=== PATIENT | female | born 1965 | race Caucasian/White ===

== ENCOUNTER 2020-04-10 07:36 | Outpatient (CLI) | payer OTHER, SELFPAY ==
--- NOTE | ~2020-04-10 | US_ITS ---
EXAMINATION: US thyroid DATE: 04/10/2020 08:59 INDICATION: Nontoxic single thyroid nodule. TECHNIQUE: Multiple ultrasound images of the thyroid were obtained. COMPARISON: None. FINDINGS: The right thyroid lobe measures 4.4 x 1.2 x 1.2 cm. The left thyroid lobe measures 3.1 x 1.8 x 1.2 c m. 3 mm wider than tall solid hypoechoic nodule without echogenic foci in the mid right thyroid. 2.1 cm wider than tall predominantly solid hypoechoic nodule with increased vascular flow on color Doppl er but without echogenic foci in the mid left thyroid. Both nodules are (TI-RADS 4, moderately suspic ious , FNA if >=1.5 cm, annual followup is >1 cm). There is normal echotexture, echogenicity and vas cular flow throughout the surrounding thyroid gland. IMPRESSION: 1. Bilateral thyroid nodules. Recommend ultrasound guided biopsy of the 2.1 cm TI RADS 4 left thyroid nodule. Reviewed, dictated and finalized at location A.
== END 2020-04-10 07:37 | disposition home or self-care (01) ==
LOC: ANHIMG 07:41
PROVIDERS: PCP Family Medicine; Visit Provider Otolaryngology
DX: E04.2 Nontoxic multinodular goiter (principal)
CPT/HCPCS: 76536

== ENCOUNTER 2020-11-01 08:17 | Outpatient (CLI) | payer OTHER, SELFPAY ==
--- NOTE | ~2020-11-01 | MM_ITS ---
EXAMINATION: MM screening [facility] BI w eloise HISTORY: Screening TECHNIQUE: Craniocaudal and mediolateral oblique 3-D tomosynthesis images were obtained and synthetic 2-D images were generated. CAD analysis was submitted and interpreted. COMPARISON: No prior mammogram is available for comparison at this institution. BREAST PARENCHYMAL COMPOSITION: The breasts are heterogeneously dense, which may obscure small masses . FINDINGS: There is a possible mass in the subareolar location of the left breast on CC view. There is no mammographic evidence for malignancy in the right breast. IMPRESSION: 1. Possible left breast mass. 2. Additional mammographic views and possible breast ultrasound are recommended. BI-RADS Category 0: Incomplete: Needs additional imaging evaluation. Reviewed, dictated and finalized at location A. 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 Possible left breast mass. 2. Additional mammographic views and possible breast ultrasound are recommended . BI-RADS Category 0: Incomplete: Needs additional imaging evaluation.
== END 2020-11-01 08:18 | disposition home or self-care (01) ==
LOC: ANHIMG 08:22
PROVIDERS: PCP Family Medicine; Visit Provider Obstetrics & Gynecology
DX: Z12.31 Encounter for screening mammogram for malignant neoplasm of breast (principal); R92.8 Other abnormal and inconclusive findings on diagnostic imaging of breast
CPT/HCPCS: 77063; 77067

== ENCOUNTER 2020-12-04 11:32 | Outpatient (CLI) | payer OTHER, SELFPAY ==
--- NOTE | ~2020-12-04 | MMUS_ITS ---
EXAMINATION: MM diagnostic mammo unilat LT, US breast LT complete HISTORY: Focal subareolar asymmetry reported on 11/01/2020 screening mammogram TECHNIQUE: Additional 3-D tomosynthesis images of the left breast were performed and synthetic 2-D im ages were generated. CAD analysis was submitted and interpreted. High resolution complete left breast ultrasound was performed. COMPARISON: 11/01/2020 bilateral digital screening mammogram FINDINGS: MAMMOGRAPHIC FINDINGS: No suspicious mass or architectural distortion, malignant calcification, skin thickening or retractio n is detected. ULTRASOUND: No suspicious mass or shadowing of the left breast is evident. IMPRESSION: 1. No mammographic evidence of malignancy 2. Routine annual mammographic screening is recommended. BI-RADS Category 1: Negative Reviewed, dictated and finalized at location A. IMPRESSION: 1. No mammographic evidence of malignancy 2. Routine annual mammographic screening is recommended. BI-RADS Category 1: Negative
== END 2020-12-04 11:33 | disposition home or self-care (01) ==
PROVIDERS: PCP Family Medicine; Visit Provider Obstetrics & Gynecology
DX: R92.8 Other abnormal and inconclusive findings on diagnostic imaging of breast (principal); N63.20 Unspecified lump in the left breast, unspecified quadrant
CPT/HCPCS: 76641; 77065

== ENCOUNTER 2021-03-21 13:21 | Outpatient (CLI) | payer BC, SELFPAY ==
--- NOTE | ~2021-03-21 | US_ITS ---
EXAMINATION: US thyroid EXAM DATE: 03/21/2021 13:57 INDICATION: Thyroid nodule. TECHNIQUE: Multiple grayscale and Doppler images of the thyroid were obtained (by a technologist who performed the scan) and subsequently reviewed. Individual nodules and recommendations may be reporte d in accordance with TI-RADS system as designated by the 2017 ACR White Paper TI-RADS committee. Comp sharda is made to prior examination from 04/16/2020. FINDINGS: The right thyroid lobe measures 4.0 x 1.6 x 1.0 cm, the left measuring 4.2 x 1.9 x 1.3 cm. There are several thyroid nodules. Largest nodule is in the left thyroid lobe, hypervascular and measuring 2.1 x 0.9 x 1.4 cm, solid (2 points), hypoechoic (2 points), wider than tall, smooth well defined margin, without echogenic foci, category TR4 for this nodule. Last year this nodule measured 2.1 x 1.4 x 1. 8 cm, has demonstrated mild interval decrease in size. Category TR 4 nodules greater than 1.5 cm are recommended for ultrasound-guided biopsy. IMPRESSION: Left thyroid lobe nodule with mild interval decrease in size. This is large enough for ul trasound-guided biopsy but given decrease in size, one year follow-up would be reasonable as well. Reviewed, dictated and finalized at location A. IMPRESSION: Left thyroid lobe nodule with mild interval decrease in size. This is large enough for ultrasound-guided biopsy but given decrease in size, one ye ar follow-up would be reasonable as well.
== END 2021-03-21 13:22 | disposition home or self-care (01) ==
PROVIDERS: PCP Family Medicine; Visit Provider Otolaryngology
DX: E04.1 Nontoxic single thyroid nodule (principal)
CPT/HCPCS: 76536

== ENCOUNTER 2021-12-31 07:22 | Outpatient (CLI) | payer BC, SELFPAY ==
--- NOTE | ~2021-12-31 | MM_ITS ---
EXAMINATION: MM screening [facility] BI w eloise HISTORY: Screening mammogram TECHNIQUE: Craniocaudal and mediolateral oblique 3-D tomosynthesis images were obtained and synthetic 2-D images were generated. CAD analysis was submitted and interpreted. COMPARISON: 12/04/2020 diagnostic left mammogram and complete left breast ultrasound 11/01/2020 bilateral screening mammogram 11/05/2007 seen BREAST PARENCHYMAL COMPOSITION: The breasts are heterogeneously dense, which may obscure small masses . FINDINGS: There is no evidence of suspicious mass, calcification, or architectural distortion to sugg est malignancy in either breast. There has been no suspicious interval change. IMPRESSION: 1. No mammographic evidence of malignancy. 2. Recommend routine screening mammography in one year. BI-RADS Category 1: Negative Reviewed, dictated and finalized at location A.
== END 2021-12-31 07:23 | disposition home or self-care (01) ==
LOC: ANHIMG 07:23
PROVIDERS: PCP Family Medicine; Visit Provider Obstetrics & Gynecology
DX: Z12.31 Encounter for screening mammogram for malignant neoplasm of breast (principal)
CPT/HCPCS: 77063; 77067

== ENCOUNTER 2022-03-04 09:11 | Outpatient (CLI) | payer BC, SELFPAY ==
--- NOTE | 2022-03-04 11:30 | NEURO_ITS ---
Impression: # Complains of pain in hands. # Normal nerve conduction study. # No Carpal Tunnel Syndrome or ulnar neuropathy. # Normal needle/EMG exam. Nerve Conduction Studies Anti Sensory Summary Table Stim Site NR Peak (ms) P-T Amp (?V) Site1 Site2 Delta-P (ms) Dist (cm) Yao (m/s) Left Median Anti Sensory (2-3nd Digit) Wrist 2.9 56.7 Wrist 2-3nd Digit 2.9 14.0 48 Wrist 2.8 39.8 Wrist 2-3nd Digit 2.9 14.0 48 Right Median Anti Sensory (2-3nd Digit) Wrist 2.5 37.4 Wrist 2-3nd Digit 2.5 14.0 56 Wrist 2.5 35.7 Wrist 2-3nd Digit 2.5 14.0 56 Left Radial Anti Sensory (Base 1st Digit) Wrist 1.8 43.7 Wrist Base 1st Digit 1.8 0.0 Right Radial Anti Sensory (Base 1st Digit) Wrist 1.9 34.1 Wrist Base 1st Digit 1.9 0.0 Left Ulnar Anti Sensory (5th Digit) Wrist 2.3 32.2 Wrist 5th Digit 2.3 14.0 61 Right Ulnar Anti Sensory (5th Digit) Wrist 2.1 40.2 Wrist 5th Digit 2.1 14.0 67 Motor Summary Table Stim Site NR Onset (ms) O-P Amp (mV) Site1 Site2 Delta-0 (ms) Dist (cm) Yao (m/s) Left Median Motor (Abd Poll Brev) Wrist 2.9 3.5 Elbow Wrist 4.4 25.0 57 Elbow 7.3 5.1 Right Median Motor (Abd Poll Brev) Wrist 3.0 6.2 Elbow Wrist 4.7 26.0 55 Elbow 7.7 4.5 Left Ulnar Motor (Abd Dig Minimi) Wrist 2.3 5.9 A Elbow Wrist 4.7 27.0 57 A Elbow 7.0 4.9 Right Ulnar Motor (Abd Dig Minimi) Wrist 2.2 7.0 A Elbow Wrist 4.8 27.0 56 A Elbow 7.0 6.3 F Wave Studies NR F-Lat (ms) L-R F-Lat (ms) Left Median (Mrkrs) (Abd Poll Brev) 24.86 1.93 Right Median (Mrkrs) (Abd Poll Brev) 26.80 1.93 Left Ulnar (Mrkrs) (Abd Dig Min) 24.85 0.46 Right Ulnar (Mrkrs) (Abd Dig Min) 25.32 0.46 EMG Side Muscle Nerve Root Ins Act Fibs Amp Dur Recrt Comment Right 1stDorInt Ulnar C8-T1 Nml Nml Nml Nml Nml Right Ext Indicis Radial (Post Int) C7-8 Nml Nml Nml Nml Nml Right Ext Digitorum Radial (Post Int) C7-8 Nml Nml Nml Nml Nml Right BrachioRad Radial C5-6 Nml Nml Nml Nml Nml Right PronatorTeres Median C6-7 Nml Nml Nml Nml Nml Right Abd Poll Brev Median C8-T1 Nml Nml Nml Nml Nml Left 1stDorInt Ulnar C8-T1 Nml Nml Nml Nml Nml Left Ext Indicis Radial (Post Int) C7-8 Nml Nml Nml Nml Nml Left Ext Digitorum Radial (Post Int) C7-8 Nml Nml Nml Nml Nml Left BrachioRad Radial C5-6 Nml Nml Nml Nml Nml Left PronatorTeres Median C6-7 Nml Nml Nml Nml Nml Left Abd Poll Brev Median C8-T1 Nml Nml Nml Nml Nml MTDD
== END 2022-03-04 09:12 | disposition home or self-care (01) ==
PROVIDERS: PCP Family Medicine; Visit Provider Family Medicine
DX: M79.643 Pain in unspecified hand (principal)
CPT/HCPCS: 95886; 95911

== ENCOUNTER → 2023-01-06 10:18 | Outpatient (CLI) | payer BC, SELFPAY ==
--- NOTE | ~2023-01-06 | DEXA_ITS ---
Bone Density Report Name: HAIR ALTAMIRANO Age: 57 Sex: Female Ethnicity: White Date of : 1965 Indication: postmenopausal; screening for osteoporosis; parental hip fracture; hysterectomy; Referring Provider: GABBY GRAF Study: Bone densitometry was performed. Exam Date: January 06, 2023 Accession number: [id number] Bone Density: Region BMD T-score Z-score Classification AP Spine (L1-L4) 0.934 -1.0 0.1 Normal Femoral Neck (Left) 0.663 -1.7 -0.6 Osteopenia Total Hip (Left) 0.729 -1.7 -1.0 Osteopenia Femoral Neck (Right) 0.665 -1.7 -0.6 Osteopenia Total Hip (Right) 0.733 -1.7 -1.0 Osteopenia Total Hip Mean 0.731 -1.7 -1.0 Osteopenia World Health Organization criteria for BMD impression classify patients as: Normal (T-score at or above -1.0), Osteopenia (T-score between -1.0 and -2.5), or Osteoporosis (T-score at or below -2.5). 10-year Fracture Risk(1): Major Osteoporotic Fracture 14% Hip Fracture 0.7% Reported Risk Factors: [place] (), Neck BMD=0.665, BMI=24.6, parental fracture (1) FRAX(R) Version 3.08. Fracture probability calculated for an untreated patient. Fracture probability may be lower if the patient has received treatment. Clinical Information Provided by Patient: Parent has had a hip fracture Has used the following medications: HRT (i.e. estrogen/hormone therapy), Vitamin D Has the following medical conditions: Hysterectomy Patient maximum height was 64.75 Menopause Age: 37 Drinks caffeinated beverages Onset of menses at age 16 Number of children 1 Impression: The patient has low bone mass, based on the Left Total Hip T-score. The patient has an estimated ten-year risk of hip fracture of 0.7% and an estimated ten-year risk of major fracture of 14%, based on the WHO FRAX algorithm. The patient has risk factors, including: parental hip fracture. Discussion: BONE DENSITY IS LOW AT ONE OR MORE SKELETAL SITES. This patient's lowest T-score is low at one or more skeletal sites. It meets the World Health Organization's (WHO) criteria for ?low bone mass? (T-score between -1.0 and -2.5). The patient's 10-year risk of fracture as calculated by FRAX is less than the threshold where pharmacological therapy is recommended by the National Osteoporosis Foundation (NOF). However, all treatment decisions require clinical judgment and consideration of individual patient factors, including patient preferences, comorbidities, previous drug use, risk factors not captured in the FRAX model (e.g., frailty, falls, vitamin D deficiency, increased bone turnover, interval significant decline in bone density) and possible under or overestimation of fracture risk by FRAX. The patient should follow a healthful lifestyle (good nutrition with adequate calcium and vitamin D, and appropriate weight-
--- NOTE | ~2023-01-06 | MM_ITS ---
EXAMINATION: MM screening [facility] BI w eloise HISTORY: Screening mammogram TECHNIQUE: Craniocaudal and mediolateral oblique 3-D tomosynthesis images were obtained and synthetic 2-D images were generated. CAD analysis was submitted and interpreted. COMPARISON: 12/31/2021, 12/04/2020, 11/01/2020 BREAST PARENCHYMAL COMPOSITION: The breasts are heterogeneously dense, which may obscure small masses . FINDINGS: No suspicious mass, calcification, or architectural distortion are identified in either nicole ast to suggest malignancy. There has been no suspicious interval change. IMPRESSION: 1. No mammographic evidence of malignancy. 2. Recommend routine screening mammography in one year. BI-RADS Category 1: Negative Reviewed, dictated and finalized at location A.
== END ==
PROVIDERS: PCP Family Medicine; Visit Provider Obstetrics & Gynecology Gynecology
DX: Z12.31 Encounter for screening mammogram for malignant neoplasm of breast (principal); Z78.0 Asymptomatic menopausal state; M85.852 Other specified disorders of bone density and structure, left thigh; M85.851 Other specified disorders of bone density and structure, right thigh
CPT/HCPCS: 77063; 77067; 77080

== ENCOUNTER → 2023-03-05 08:42 | Outpatient (CLI) | payer BC, SELFPAY ==
--- NOTE | ~2023-03-05 | XR_ITS ---
Bilateral Hands Technique: Bilateral PA, oblique, and lateral views, and ball-catcher's view were obtained. Clinical History: Pain Findings: No acute fracture or dislocation is seen. Osseous alignment is anatomic. There is moderate degenerative change at the left third DIP joint and left second DIP joint. There is moderate degenera tive change at the right second, third, and fifth DIP joints.. Soft tissues are unremarkable. 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 Reviewed, dictated and finalized at location M. 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
== END ==
PROVIDERS: PCP Family Medicine; Visit Provider Physician Assistant
DX: M19.041 Primary osteoarthritis, right hand (principal); M19.042 Primary osteoarthritis, left hand
CPT/HCPCS: 73130

== ENCOUNTER 2024-03-15 13:00 | Outpatient (CLI) | payer BC, SELFPAY ==
--- NOTE | ~2024-03-15 | US_ITS ---
EXAMINATION: US thyroid DATE: 03/15/2024 13:57 INDICATION: Nontoxic single thyroid nodule TECHNIQUE: Multiple ultrasound images of the thyroid were obtained. COMPARISON: None. FINDINGS: The right thyroid lobe measures 4.1 x 1.2 x 1.3 cm. The left thyroid lobe measures 3.9 x 2.0 x 1.5 c m. Slight increase in size of a now 2.5 x 1.7 x 1.1 cm solid wider than tall hypoechoic nodule with s mooth margins in the left thyroid lobe. (TI-RADS 4, moderately suspicious , FNA if >=1.5 cm, annual f ollowup is >=1 cm). Unchanged 3-4 mm solid very hypoechoic wider than tall nodule with smooth margins and without echogenic foci in the superficial right thyroid lobe, also TI RADS 4. There is normal ec hotexture, echogenicity and vascular flow throughout the remainder of the thyroid gland. IMPRESSION: 1. Slight increase in size of a now 2.5 cm TI RADS 4 left thyroid nodule for which ultrasound guided biopsy would be recommended. Reviewed, dictated and finalized at location A. IMPRESSION: 1. Slight increase in size of a now 2.5 cm TI RADS 4 left thyroid nodule for wh ich ultrasound guided biopsy would be recommended.
== END 2024-03-15 13:01 | disposition home or self-care (01) ==
LOC: ANHIMG 13:08
PROVIDERS: PCP Family Medicine; Visit Provider Physician Assistant
DX: E04.1 Nontoxic single thyroid nodule (principal)
CPT/HCPCS: 76536

== ENCOUNTER 2024-03-31 11:09 | Outpatient (CLI) | payer BC, SELFPAY ==
--- NOTE | ~2024-03-31 | MM_ITS ---
EXAMINATION: MM screening [facility] BI w eloise HISTORY: Screening TECHNIQUE: Craniocaudal and mediolateral oblique 3-D tomosynthesis images were obtained and synthetic 2-D images were generated. CAD analysis was submitted and interpreted. COMPARISON: Comparison to multiple prior studies sequentially, with oldest reviewed study dated 02/2018. BREAST PARENCHYMAL COMPOSITION: Not dense: There are scattered areas of fibroglandular density. FINDINGS: There is no evidence of suspicious mass, calcification, or architectural distortion to sugg est malignancy in either breast. There has been no suspicious interval change. IMPRESSION: 1. No mammographic evidence of malignancy. 2. Recommend routine screening mammography in one year. BI-RADS Category 1: Negative Reviewed, dictated and finalized at location B.
== END 2024-03-31 11:10 ==
LOC: MICIMG 11:10
PROVIDERS: PCP Family Medicine; Visit Provider Physician Assistant
DX: Z12.31 Encounter for screening mammogram for malignant neoplasm of breast (principal)
CPT/HCPCS: 77063; 77067